=== PATIENT | male | born 1980 | race Caucasian/White ===

== ENCOUNTER 2024-10-08 16:01 | Emergency (ER) | payer SELFPAY ==
[2024-10-08] MEDS ORDERED: Nitroglycerin 0.4 MG TAB 1 EACH ONE (16:24)
[2024-10-08 16:26] LABS: #Basophils 0.1 thou/uL (0.0-0.2); #Eosinophils 0.3 thou/uL (0.0-0.7); #Lymphocytes 3.3 thou/uL (1.20-3.40); #Monocytes 0.7 thou/uL (0.11-0.59); %Basophils 1.3 % (0.0-1.0); %Eosinophils 3.1 % (0.0-10.0); %Lymphocytes 39.7 % (21.0-51.0); %Monocytes 8.2 % (0.0-10.0); %Neutrophils 47.6 % (42.0-75.0); Hematocrit 41.9 % (42.0-52.0); Hemoglobin 14.6 g/dL (14.0-18.0); Mean Corpuscular HGB CONC 34.7 g/dL (32.0-36.0); Mean Corpuscular Hemoglobin 30.4 pg (27.0-31.0); Mean Corpuscular Volume 87.5 fl (78.0-98.0); Platelet Count 235 10x3/uL (130-400); RBC Distribution Width 12.4 % (11.5-14.5); Red Blood Cell (RBC) Count 4.79 mill/uL (4.70-6.10); White Blood Cell (WBC) Count 8.4 10x3/uL (4.8-10.8)
[2024-10-08 16:43] LABS: ALT (SGPT) 72 U/L (Less than 45); AST (SGOT) 62 U/L (11-34); Albumin 3.9 g/dL (3.1-4.5); Alkaline Phosphatase 65 U/L (40-110); Anion Gap 15 mmol/L (10-20); BUN (Urea Nitrogen) 9 mg/dL (8.9-20.6); Bilirubin, Total 0.3 mg/dL (0.3-1.2); Calc. Creatinine Clearance 0 mL/min (70-130); Calcium 9.4 mg/dL (7.8-10.44); Carbon Dioxide 23 mmol/L (22-29); Chloride 103 mmol/L (98-107); Estimated GFR 103; Globulin 3.7 g/dL (2.4-3.5); Glucose 78 mg/dL (70-105); Lipase 22 U/L (8-78); Protein, Total 7.6 g/dL (6.0-8.3); Sodium 137 mmol/L (136-145); Troponin I Less than 0.010 ng/mL (< 0.028)
[2024-10-08] MEDS ORDERED: Ondansetron PF 4 MG/2 ML Vial ONE (16:58)
[2024-10-08] MEDS ORDERED: Morphine 4 MG/ML VIAL ONE ×2 (16:58→17:00)
[2024-10-08 17:31] LABS: INR-International Normal Ratio 1.1; Prothrombin Time 14.4 sec (12.0-14.7)
[2024-10-08 17:32] LABS: PTT 32.6 sec (22.9-36.1)
[2024-10-08] MEDS ORDERED: Nitroglycerin 2% Ointment 1 INCH/1 GM Packet ONE (19:55)
[2024-10-08] MEDS ORDERED: Acetaminophen 500 MG TAB ONE (19:55)
[2024-10-08 20:36] LABS: Troponin I Less than 0.010 ng/mL (< 0.028)
== END 2024-10-08 20:39 | disposition short-term general hospital (02) ==
LOC: NAV ERS 16:01
DX: R07.89 Other chest pain (principal); I11.0 Hypertensive heart disease with heart failure; I50.9 Heart failure, unspecified; E11.9 Type 2 diabetes mellitus without complications; I25.10 Atherosclerotic heart disease of native coronary artery without angina pectoris; I25.2 Old myocardial infarction; F17.290 Nicotine dependence, other tobacco product, uncomplicated; Z95.1 Presence of aortocoronary bypass graft; Z95.5 Presence of coronary angioplasty implant and graft
CPT/HCPCS: 36415; 71045; 80053; 83690; 83880; 84484; 85025; 85610; 85730; 93005; 94760; 96374; 96375; J2270; J2405